=== PATIENT | female | born 1980 ===

== ENCOUNTER 2017-04-06 17:27 | Inpatient (IN) | payer MEDICAID, OTHER ==
[2017-04-06] MEDS ORDERED: Albuterol-Ipratrop 3 mg / 0.5 (3 ml) UD INH STA (17:55)
[2017-04-06] MEDS ORDERED: Sodium Chloride 0.9% 1,000 ML IV STA (17:55)
[2017-04-06] MEDS ORDERED: Albuterol-Ipratrop 3 mg / 0.5 (3 ml) UD ONE (18:01)
[2017-04-06 18:25] LABS: BASO # 0.1 K/uL (0.0-0.2); BASO % 0.6 % (0.0-2.0); EOS # 1.2 K/uL (0.0-0.7); EOS % 13.4 % (0.0-4.0); LYMPH # 2.3 K/uL (1.0-4.3); LYMPH % 25.5 % (20.0-40.0); MEAN CELL VOLUME 73.4 fl (81.0-99.0); MEAN CORPUSCULAR HEMOGLOBIN 23.4 pg (27.0-31.0); MEAN CORPUSCULAR HGB CONC 31.9 g/dL (33.0-37.0); MEAN PLATELET VOLUME 8.8 fl (7.2-11.7); MONO # 0.5 K/uL (0.0-0.8); MONO % 5.7 % (0.0-10.0); NEUT # 4.9 K/uL (1.8-7.0); NEUT % 54.8 % (50.0-75.0); RED CELL DISTRIBUTION WIDTH 17.9 % (11.5-14.5)
[2017-04-06 18:32] LABS: ALB/GLOB RATIO 1.4 (1.0-2.1); ALKALINE PHOSPHATASE 64 U/L (38-126); ALT/SGPT 33 U/L (9-52); AST/SGOT 33 U/L (14-36); BILIRUBIN,TOTAL 0.2 mg/dl (0.2-1.3); BLOOD UREA NITROGEN 14 mg/dl (7-17); CARBON DIOXIDE 24 mmol/L (22-30); CHLORIDE 105 mmol/L (98-107); GFR AFRICAN-AMERICAN > 60; GLUCOSE,RANDOM 100 mg/dL (65-105); POTASSIUM 3.8 MMOL/L (3.6-5.0); SODIUM 140 mmol/l (132-148)
--- NOTE | 2017-04-06 18:39 | ED PDOC ---
HPI: CCC, URI, Sore Throat Chief Complaint (Provider): [place] x 1 week History Per: Patient History/Exam Limitations: no limitations Have you had recent travel within the past 21 days to any of the following countries: [place], [place], [place] or [place]?: No Onset/Duration Of Symptoms: Days Current Symptoms Are (Timing): Still Present Sick Contacts (Context): None Associated Symptoms: Cough, Sputum (With blood x 1 day), Myalgias. denies: Fever, Chills, Sore Throat, Neck Pain, Sinus Drainage, Nasal Congestion, Nausea , Vomiting, Diarrhea Ear Symptoms: Bilateral: None <Steffany Drew - Last Filed: 04/06/17 20:06> <Amira Mcintyre - Last Filed: 04/06/17 20:15> Time Seen by Provider: 04/06/17 17:36 Chief Complaint (Nursing): Cough, Cold, Congestion Additional Complaint(s): Pt denies history of asthma. States the last time she was coughing and wheezing was 14 years ago when she was diagnosed with TB. Pt states she completed treatment course. (Steffany Drew) Supervising Attending Note <Steffany Drew - Last Filed: 04/06/17 20:06> - Supervising Attending Note The Documented history was done by the: Physician Adoption Social Worker, Attending Physician The documented physical exam was done by the: Physician Adoption Social Worker, Attending Physician - Attestation: I have personally seen and examined this patient.: Yes I have fully participated in the care of the patient.: Yes I have reviewed all pertinent clinical information, including history, physical exam and plan: Yes <Amira Mcintyre - Last Filed: 04/06/17 20:15> - Notes: Notes:: DW pt findings of CXR. She reports that when she had TB in the past, she was told that she no longer had a right lung. Pt's exam demonstrates continued rhonchi/wheeze bilaterally. Labs so far unremarkable. At this point, pt needs hospitalization for continued treatment/evaluation of possible TB. She has pneumonia symptoms, reports they are similar to when she was first diagnosed with TB, and she is poor follow up due to lack of access. JENNIFER Keith Hospitalist (Amira Mcintyre) Past Medical History - Medical History Other PMH: TB - Surgical History Surgical History: - Family History Family History: States: No Known Family Hx <Steffany Drew - Last Filed: 04/06/17 20:06> <Amira Mcintyre - Last Filed: 04/06/17 20:15> Vital Signs: Last Vital Signs Temp 98.0 F 04/06/17 17:32 Pulse 100 H 04/06/17 17:32 Resp 16 04/06/17 17:32 BP 124/88 04/06/17 17:32 Pulse Ox 99 04/06/17 20:07 - Home Medications Home Medications: Ambulatory Orders Medication Instructions Recorded Guaifen/Dextromethorphan/PE 10 ml PO Q4H PRN 04/06/17 [Robitussin Cough-Cold Cf Liq] - Allergies Allergies/Adverse Reactions: Allergies Allergy/AdvReac Type Severity Reaction Status Date / Time No Known Allergies Allergy Verified 04/06/17 17:32 Curb-65 Severity Score - CURB-65 Severity Score Confusion: No Bun >19mg/dl (>7mmol/L): No Respiratory Rate greater than/equal to 30: No Systolic BP <90 or Diastolic BP less than/equal 60mmHg: No Age >64: No Curb-65 Score: 0 Percentage 30-day mortality: 0.6% <Steffany Drew - Last Filed: 04/06/17 20:06> Review of Systems ROS Statement: Except As Marked, All Systems Reviewed And Found Negative Constitutional: Positive for: Malaise Respiratory: Positive for: Cough, Hemoptysis, Wheezing. Negative for: Shortness of Breath, SOB with Exertion <Steffany Drew - Last Filed: 04/06/17 20:06> Physical Exam - Reviewed Nursing Documentation Reviewed: Yes Vital Signs Reviewed: Yes - Physical Exam Appears: Positive for: Well, Non-toxic, No Acute Distress Head Exam: Positive for: ATRAUMATIC, NORMAL INSPECTION, NORMOCEPHALIC Skin: Positive for: Normal Color, Warm, DRY Eye Exam: Positive for: Normal appearance ENT: Positive for: Normal ENT Inspection Neck: Positive for: Normal, Painless ROM Cardiovascular/Chest: Positive for: Regular Rate, Rhythm Respiratory: Positive for: Wheezing (Diffuse wheezing ). Negative for: Normal Breath Sounds, Decreased Breath Sounds, Accessory Muscle Use, Respiratory Distress Gastrointestinal/Abdominal: Positive for: Normal Exam, Bowel Sounds, Soft Back: Positive for: Normal Inspection Extremity: Positive for: Normal ROM Neurologic/Psych: Positive for: Alert, Oriented <Steffany Drew - Last Filed: 04/06/17 20:06> - Laboratory Results Result Diagrams: 04/06/17 18:15 04/06/17 18:15 - ECG O2 Sat by Pulse Oximetry: 99 Pulse Ox Interpretation: Normal <Steffany Drew - Last Filed: 04/06/17 20:06> - Laboratory Results Result Diagrams: 04/06/17 18:15 04/06/17 18:15 <Amira Mcintyre - Last Filed: 04/06/17 20:15> Medical Decision Making <Steffany Drew - Last Filed: 04/06/17 20:06> <Amira Mcintyre - Last Filed: 04/06/17 20:15> Medical Decision Making: Admission to hospitalist. Abnormal CXR. (Steffany Drew) Disposition - Patient ED Disposition Is Patient to be Admitted: Yes - Disposition Disposition Time: 20:06 - Pt Status Changed To: Hospital Disposition Of: Inpatient - Admit Certification Admit to Inpatient:: After my assessment, the patient will require hospitalization for at least two midnights. This is because of the severity of symptoms shown, intensity of services needed, and/or the medical risk in this patient being treated as an outpatient. - POA Present On Arrival: None <Steffany Drew - Last Filed: 04/06/17 20:06> <Amira Mcintyre - Last Filed: 04/06/17 20:15> - Clinical Impression Clinical Impression: Lower respiratory infection (e.g., bronchitis, pneumonia, pneumonitis, pulmonitis), History of tuberculosis - Disposition Condition: GOOD
[2017-04-06 18:56] LABS: VENOUS BLOOD GAS BASE EXCESS 1.5 mmol/L (0.0-2.0); VENOUS BLOOD GAS PCO2 46 mmHg (40-60); VENOUS BLOOD PH 7.38 (7.32-7.43)
[2017-04-06] MEDS ORDERED: Azithromycin 500 MG in Sodium Chloride 0.9% 250 ML IVPB STA (20:06)
[2017-04-06 20:15] LABS: RBC URINE 1 /hpf (0-3); URINE BACTERIA RARE (<OCC); URINE BILIRUBIN NEGATIVE (NEGATIVE); URINE BLOOD NEGATIVE (NEGATIVE); URINE COLOR YELLOW (YELLOW); URINE GLUCOSE (UA) NEG (Normal); URINE KETONE NEGATIVE (NEGATIVE); URINE LEUKOCYTE ESTERASE NEG Leu/uL (Negative); URINE PROTEIN NEGATIVE (NEGATIVE); URINE UROBILINOGEN 0.2-1.0 mg/dL (0.2-1.0); WBC URINE 1 /hpf (0-5)
--- NOTE | 2017-04-06 21:20 | CP.PCM.HP ---
History of Present Illness - History of Present Illness History of Present Illness: CC: Hemoptysis History via online controls engineer HPI: This is a 36 y/o female with prior history of TB who comes in with 1 week of upper respiratory symptoms which have not improved. She came into the ER today because she had blood streaked sputum. Denies f/c/n/v/d. Denies nightsweats or weight loss. Denies FUENTES, joint or muscle pain. Denies weightloss. Denies any travel or other unusual exposures. States this is different from when she had TB several years ago. ROS: 14 systems reviewed, negative other than HPI MHx: Prior history of TB with some ?scarring of the lungs SHx: in the past Allergies: None Medications: None Family Hx: None Social Hx: Lives with family, denies EtOH, denies tobacco Present on Admission - Present on Admission Any Indicators Present on Admission: No Past Patient History - Past Social History Smoking Status: Never Smoked - PULMONARY Hx Asthma: No Hx Tuberculosis: Yes (2002 treated [facility] [place]) - PSYCHIATRIC Hx Substance Use: No - SURGICAL HISTORY Hx Section: Yes Meds Allergies/Adverse Reactions: Allergies Allergy/AdvReac Type Severity Reaction Status Date / Time No Known Allergies Allergy Verified 04/06/17 17:32 Physical Exam - Constitutional Appears: No Acute Distress - Head Exam Head Exam: ATRAUMATIC, NORMOCEPHALIC - Eye Exam Eye Exam: EOMI, PERRL - ENT Exam ENT Exam: Mucous Membranes Moist - Respiratory Exam Respiratory Exam: Rhonchi, NORMAL BREATHING PATTERN - Cardiovascular Exam Cardiovascular Exam: REGULAR RHYTHM, +S1, +S2 - GI/Abdominal Exam GI & Abdominal Exam: Normal Bowel Sounds, Soft - Extremities Exam Extremities exam: Positive for: normal inspection - Neurological Exam Neurological exam: Alert, CN II-XII Intact, Oriented x3 - Psychiatric Exam Psychiatric exam: Normal Affect, Normal Mood - Skin Skin Exam: Dry, Warm Results - Vital Signs Recent Vital Signs: Last Vital Signs Temp 98.0 F 04/06/17 17:32 Pulse 100 H 04/06/17 17:32 Resp 16 04/06/17 17:32 BP 124/88 04/06/17 17:32 Pulse Ox 99 04/06/17 20:07 - Labs Result Diagrams: 04/06/17 18:15 04/06/17 18:15 - Imaging and Cardiology Chest x-ray Status: Image reviewed by me (abnormality/opacity, scarring? in L lung field) Assessment & Plan (1) Lower respiratory infection (e.g., bronchitis, pneumonia, pneumonitis, pulmonitis) Assessment and Plan: 36 y/o female with upper/lower respiratory symptoms as well as hemoptysis with MHx of TB. -Cont Azithromycin IV for now -Duonebs -Tylenol for fever -3 sets of AFB sputum cultures -ID consult (Abel) for AM -SCDS for dvt ppx Status: Acute (2) History of tuberculosis Status: Acute (3) DVT prophylaxis Status: Acute
[2017-04-06] MEDS ORDERED: Albuterol-Ipratrop 3 mg / 0.5 (3 ml) UD INH PRN (23:31)
[2017-04-07 07:10] LABS: BASO % 0.2 % (0.0-2.0); HEMATOCRIT 32.3 % (34.0-47.0); LYMPH # 0.7 K/uL (1.0-4.3); LYMPH % 10.8 % (20.0-40.0); MEAN CELL VOLUME 73.8 fl (81.0-99.0); MEAN CORPUSCULAR HEMOGLOBIN 23.8 pg (27.0-31.0); MEAN CORPUSCULAR HGB CONC 32.3 g/dL (33.0-37.0); MONO % 0.7 % (0.0-10.0); NEUT # 5.4 K/uL (1.8-7.0); NEUT % 88.3 % (50.0-75.0); NRBC % 0.1 % (0.0-0.0); WHITE BLOOD COUNT 6.1 K/uL (4.8-10.8)
[2017-04-07 07:33] LABS: BLOOD UREA NITROGEN 10 mg/dl (7-17); CALCIUM 8.8 mg/dL (8.4-10.2); CARBON DIOXIDE 21 mmol/L (22-30); CHLORIDE 108 mmol/L (98-107); GFR AFRICAN-AMERICAN > 60; GLUCOSE,RANDOM 129 mg/dL (65-105); POTASSIUM 4.1 MMOL/L (3.6-5.0); SODIUM 140 mmol/l (132-148)
--- NOTE | 2017-04-07 09:03 | CT ---
PROCEDURE: CT Chest without contrast HISTORY: right sided opacifications/bullae acute vs chronic COMPARISON: None. TECHNIQUE: Contiguous axial images were obtained through the chest without intravenous contrast enhancement. Sagittal and coronal reconstructions were performed. Radiation dose (DLP): 338 mGy-cm. This CT exam was performed using one or more of the following dose reduction techniques: Automated exposure control, adjustment of the mA and/or kV according to patient size, and/or use of iterative reconstruction technique. FINDINGS: LUNGS: Extensive bronchiectasis in the right upper lobe with moderate-sized bulla in the right lung apex as well as volume loss in the right lung. Findings appear chronic.. MEDIASTINUM: Unremarkable thoracic aorta. No aneurysm. Normal sized heart. Main pulmonary artery unremarkable. No vascular congestion. No lymphadenopathy. PLEURA: No pleural fluid. No pneumothorax. BONES: No fracture. No destructive lesion. UPPER ABDOMEN: Grossly unremarkable. OTHER FINDINGS: None. IMPRESSION: Extensive bronchiectasis in the right upper lobe with moderate-sized bulla in the right lung apex as well as volume loss in the right lung. Findings appear chronic..
[2017-04-07] MEDS: Azithromycin 500 MG in Sodium Chloride 0.9% 250 ML IVPB SCH (11:37)
--- NOTE | 2017-04-07 11:53 | CP.PCM.PN ---
Subjective - Date & Time of Evaluation Date of Evaluation: 04/07/17 Time of Evaluation: 11:30 - Subjective Subjective: No fever still with cough no hemoptysis no CP denies wt loss , no night sweats Objective - Vital Signs/Intake and Output Vital Signs (last 24 hours): Temp Pulse Resp BP Pulse Ox 97.4 F L 92 H 16 116/76 97 04/07/17 10:00 04/07/17 07:51 04/07/17 07:51 04/07/17 07:51 04/07/17 07:51 - Medications Medications: Current Medications Acetaminophen (Tylenol 325mg Tab) 650 mg PO Q6 PRN PRN Reason: Fever >100.4 F Albuterol/Ipratropium (Duoneb 3 Mg/0.5 Mg (3 Ml) Ud) 3 ml INH RQ6 PRN PRN Reason: Shortness of Breath Azithromycin 500 mg/ Sodium (Chloride) 250 mls @ 250 mls/hr IVPB DAILY [facility] Last Admin: 04/07/17 11:37 Dose: 250 mls/hr Ceftriaxone Sodium 1 gm/ (Sodium Chloride) 100 mls @ 100 mls/hr IVPB DAILY [facility] Last Admin: 04/07/17 11:36 Dose: 100 mls/hr - Labs Labs: 04/07/17 06:05 04/07/17 06:05 - Constitutional Appears: No Acute Distress - Head Exam Head Exam: ATRAUMATIC, NORMAL INSPECTION, NORMOCEPHALIC - Eye Exam Eye Exam: EOMI, Normal appearance, PERRL Pupil Exam: NORMAL ACCOMODATION - ENT Exam ENT Exam: Mucous Membranes Moist, Normal External Ear Exam - Neck Exam Neck Exam: Full ROM. absent: Meningismus - Respiratory Exam Respiratory Exam: Rales, Wheezes (sl wheezing, right ), NORMAL BREATHING PATTERN. absent: Respiratory Distress - Cardiovascular Exam Cardiovascular Exam: REGULAR RHYTHM, +S1, +S2 - GI/Abdominal Exam GI & Abdominal Exam: Soft, Normal Bowel Sounds. absent: Tenderness - Extremities Exam Extremities Exam: Full ROM, Normal Capillary Refill, Normal Inspection. absent : Calf Tenderness - Back Exam Back Exam: Full ROM, NORMAL INSPECTION. absent: CVA tenderness (L), CVA tenderness (R), paraspinal tenderness, vertebral tenderness - Neurological Exam Neurological Exam: Alert, Awake, CN II-XII Intact, Normal Gait, Oriented x3 Neuro motor strength exam: Left Upper Extremity: 5, Right Upper Extremity: 5, Left Lower Extremity: 5, Right Lower Extremity: 5 - Psychiatric Exam Psychiatric exam: Normal Affect, Normal Mood - Skin Skin Exam: Dry, Normal Color, Warm Assessment and Plan - Assessment and Plan (Free Text) Assessment: 36 y/o with hx of PTB ( 2002) - dx in [facility] [place], followed by outpt tx with the Chest Clinic in , came in because of 1 wk hx of productive cough , noted some blood tinge sputum . CT of chest : Extensive bronchiectasis in the right upper lobe with moderate- sized bulla in the right lung apex as well as volume loss in the right lung. Findings appear chronic.. (1) Lower respiratory infection (e.g., bronchitis, pneumonia, pneumonitis, pulmonitis) with Bronchiectasis r/o Reactivation of PTB - started on IV Ceftriaxone and Azithro - Sputum c/s -Sputum AFB x 3 - ID consult - discussed case with Dr Roman -Resp Isolation Status: Acute (2) History of tuberculosis Status: Acute (3) DVT prophylaxis Status: Acute SCD encourage ambulation
--- NOTE | 2017-04-07 12:07 | RAD ---
HISTORY: cough COMPARISON: April 06, 2017. CT thorax TECHNIQUE: Chest PA and lateral FINDINGS: LUNGS: Volume loss, presumed chronic changes right lung, right upper lobe. This includes scarring, bronchiectatic changes and bolus findings in the apex. PLEURA: No significant pleural effusion identified. No pneumothorax apparent. CARDIOVASCULAR: Normal. OSSEOUS STRUCTURES: No significant abnormalities. VISUALIZED UPPER ABDOMEN: Normal. OTHER FINDINGS: None. IMPRESSION: Presumed chronic changes right chinmay thorax including bronchiectatic change, volume loss, scarring. No acute findings left lung.
[2017-04-08] MEDS ORDERED: cefTRIAXone (Rocephin) 1 gm Inj ONE (09:00)
[2017-04-09] MEDS: Azithromycin 500 MG in Sodium Chloride 0.9% 250 ML IVPB SCH (10:18)
--- NOTE | 2017-04-09 12:06 | CP.PCM.PN ---
Subjective - Date & Time of Evaluation Date of Evaluation: 04/09/17 Time of Evaluation: 12:05 - Subjective Subjective: Hospitalist Progress Note (Patient was seen and examined at 12:05 PM 658-1 ) ROS Dry nonproductive cough NO hemoptysis NO SOB NO chest pain, NO palpitations, , NO dysphagia/odynophagia, NO abdominal pain, NO n/v/d/c, NO black bloody stools, NO burning/pain with urination, NO headache , NO new changes in vision/eye pain, NO new changes in hearing/ear pain, NO lightheadedness/dizziness, NO paresthesias Exam: HEENT: NCA, EOMI, PERRLA, NO pharyngeal erythema/exudate, NO thyromegaly, NO lymphadenopathy, Cardio: NS1 and NS2, NO M/R/G Respiratory:CTA B/L NO R/R/W GI: BSx4, Soft, NT, NO HSM, NO guarding/rebound tenderness, ND Ext: NO Edema, Capillary Refill is 2 seconds, Pulses are strong and equal, NO cyanosis Neuro: CN II throug XII are grossly intact Assessment/Plan 1). RUL Pneumonia?/Bronchiectasis As per CT Chest and Chest X Ray I spoke with C in Microbiology for results of 3rd Sputum for AFB (the first 2 were negative) and she will call me/Nurse April back with the results hopefully today I spoke with Ms Daigle [phone] (office [phone]) at the [facility] ([address] [place] [address]) and she is aware of this patient, who was treated there initially for TB. Ms. Daigle received the CT Chest report that was faxed over by [employer] [facility] and the director of the chest clinic has reviewed it as per Ms Daigle and from their standpoint patient can be discharged and follow up with them this Wednesday04/12/17 at 8:30 AM. I will await the results of the 3rd Sputum AFB and if Negative then will discharge patient Full Note/Discharge Summary to follow pending 3rd AFB Sputum results. Sven Morfin, [place].Mando. [phone] Objective - Vital Signs/Intake and Output Vital Signs (last 24 hours): Temp Pulse Resp BP Pulse Ox 97.9 F 84 16 92/61 L 96 04/09/17 07:51 04/09/17 07:51 04/09/17 07:51 04/09/17 07:51 04/09/17 07:51 - Medications Medications: Current Medications Acetaminophen (Tylenol 325mg Tab) 650 mg PO Q6 PRN PRN Reason: Fever >100.4 F Albuterol/Ipratropium (Duoneb 3 Mg/0.5 Mg (3 Ml) Ud) 3 ml INH RQ6 PRN PRN Reason: Shortness of Breath Azithromycin 500 mg/ Sodium (Chloride) 250 mls @ 250 mls/hr IVPB DAILY [facility] Last Admin: 04/09/17 10:18 Dose: 250 mls/hr Ceftriaxone Sodium 1 gm/ (Sodium Chloride) 100 mls @ 100 mls/hr IVPB DAILY [facility] [place] Last Admin: 04/09/17 10:17 Dose: 100 mls/hr - Labs Labs: 04/07/17 06:05 04/07/17 06:05
--- NOTE | 2017-04-09 16:06 | CP.PCM.CON ---
History of Present Illness - History of Present Illness History of Present Illness: PT with cough and expectoration. Hx of MTB treated full course with bronchiectatic changes Past Patient History - Past Social History Smoking Status: Never Smoked - CARDIAC Hx Cardiac Disorders: No - PULMONARY Hx Respiratory Disorders: Yes (TB 2002) - MUSCULOSKELETAL/RHEUMATOLOGICAL Hx Falls: No - PSYCHIATRIC Hx Substance Use: No - SURGICAL HISTORY Hx Section: Yes - ANESTHESIA Hx Anesthesia: Yes Hx Anesthesia Reactions: No Hx Malignant Hyperthermia: No Has any member of the family had a problem w/ anesthesia?: No Meds Allergies/Adverse Reactions: Allergies Allergy/AdvReac Type Severity Reaction Status Date / Time No Known Allergies Allergy Verified 04/06/17 17:32 - Medications Medications: Current Medications Acetaminophen (Tylenol 325mg Tab) 650 mg PO Q6 PRN PRN Reason: Fever >100.4 F Albuterol/Ipratropium (Duoneb 3 Mg/0.5 Mg (3 Ml) Ud) 3 ml INH RQ6 PRN PRN Reason: Shortness of Breath Azithromycin 500 mg/ Sodium (Chloride) 250 mls @ 250 mls/hr IVPB DAILY [facility] Last Admin: 04/09/17 10:18 Dose: 250 mls/hr Ceftriaxone Sodium 1 gm/ (Sodium Chloride) 100 mls @ 100 mls/hr IVPB DAILY [facility] Last Admin: 04/09/17 10:17 Dose: 100 mls/hr Results - Vital Signs Recent Vital Signs: Last Vital Signs Temp 97.9 F 04/09/17 07:51 Pulse 84 04/09/17 07:51 Resp 16 04/09/17 07:51 BP 92/61 L 04/09/17 07:51 Pulse Ox 96 04/09/17 07:51 - Labs Result Diagrams: 04/07/17 06:05 04/07/17 06:05 Assessment & Plan - Assessment and Plan (Free Text) Assessment: Past hx of MTB, rule out active TB, 2 afb smear neg so far, if 3rd one negativ, then d/c isolation
[2017-04-10 00:32] VITALS: RESP 20
[2017-04-10] MEDS: Azithromycin 500 MG in Sodium Chloride 0.9% 250 ML IVPB SCH (08:35)
[2017-04-10 08:41] VITALS: BP 109/74; PULSE 74; TEMP 97.7; O2SAT 98
--- NOTE | 2017-04-10 12:53 | CP.PCM.DIS ---
Provider - Provider Date of Admission: 04/06/17 20:23 Attending physician: Angela Keith MD Primary care physician: None Consults: ID Dr. Roman Time Spent in preparation of Discharge (in minutes): 40 Hospital Course - Lab Results Lab Results: Micro Results 04/06/17 20:48 Blood Blood Culture - Preliminary NO GROWTH AFTER 3 DAYS 04/06/17 Unknown Other: Please Indicate Mycobacterial Culture - Preliminary 04/06/17 21:02 Other: Please Indicate Mycobacterial Culture - Preliminary Most Recent Lab Values WBC 6.1 K/uL (4.8-10.8) 04/07/17 06:05 RBC 4.38 Mil/uL (3.80-5.20) 04/07/17 06:05 Hgb 10.4 g/dL (12.0-16.0) L 04/07/17 06:05 Hct 32.3 % (34.0-47.0) L 04/07/17 06:05 MCV 73.8 fl (81.0-99.0) L 04/07/17 06:05 MCH 23.8 pg (27.0-31.0) L 04/07/17 06:05 MCHC 32.3 g/dL (33.0-37.0) L 04/07/17 06:05 RDW 18.0 % (11.5-14.5) H 04/07/17 06:05 Plt Count 252 K/uL (130-400) 04/07/17 06:05 MPV 9.0 fl (7.2-11.7) 04/07/17 06:05 Neut % (Auto) 88.3 % (50.0-75.0) H 04/07/17 06:05 Lymph % (Auto) 10.8 % (20.0-40.0) L 04/07/17 06:05 Hill % (Auto) 0.7 % (0.0-10.0) 04/07/17 06:05 Eos % (Auto) 0.0 % (0.0-4.0) 04/07/17 06:05 Baso % (Auto) 0.2 % (0.0-2.0) 04/07/17 06:05 Neut # 5.4 K/uL (1.8-7.0) 04/07/17 06:05 Lymph # 0.7 K/uL (1.0-4.3) L 04/07/17 06:05 Hill # 0.0 K/uL (0.0-0.8) 04/07/17 06:05 Eos # 0.0 K/uL (0.0-0.7) 04/07/17 06:05 Baso # 0.0 K/uL (0.0-0.2) 04/07/17 06:05 pO2 27 mm/Hg (30-55) L 04/06/17 18:50 VBG pH 7.38 (7.32-7.43) 04/06/17 18:50 VBG pCO2 46 mmHg (40-60) 04/06/17 18:50 VBG HCO3 24.8 mmol/L 04/06/17 18:50 VBG Total CO2 28.6 mmol/L (22-28) H 04/06/17 18:50 VBG O2 Sat (Calc) 54.2 % (40-65) 04/06/17 18:50 VBG Base Excess 1.5 mmol/L (0.0-2.0) 04/06/17 18:50 VBG Potassium 3.8 mmol/L (3.6-5.2) 04/06/17 18:50 Sodium 138.0 mmol/L (132-148) 04/06/17 18:50 Chloride 108.0 mmol/L (98-107) H 04/06/17 18:50 Glucose 105 mg/dL (65-105) 04/06/17 18:50 Lactate 0.7 mmol/L (0.7-2.1) 04/06/17 18:50 FiO2 21.0 % 04/06/17 18:50 Sodium 140 mmol/l (132-148) 04/07/17 06:05 Potassium 4.1 MMOL/L (3.6-5.0) 04/07/17 06:05 Chloride 108 mmol/L (98-107) H 04/07/17 06:05 Carbon Dioxide 21 mmol/L (22-30) L 04/07/17 06:05 Anion Gap 15 (10-20) 04/07/17 06:05 BUN 10 mg/dl (7-17) 04/07/17 06:05 Creatinine 0.4 mg/dL (0.7-1.2) L 04/07/17 06:05 Est GFR ( Amer) > 60 04/07/17 06:05 Est GFR (Non-Af Amer) > 60 04/07/17 06:05 Random Glucose 129 mg/dL (65-105) H 04/07/17 06:05 Calcium 8.8 mg/dL (8.4-10.2) 04/07/17 06:05 Total Bilirubin 0.2 mg/dl (0.2-1.3) 04/06/17 18:15 AST 33 U/L (14-36) 04/06/17 18:15 ALT 33 U/L (9-52) 04/06/17 18:15 Alkaline Phosphatase 64 U/L (38-126) 04/06/17 18:15 Total Protein 8.0 G/DL (6.3-8.2) 04/06/17 18:15 Albumin 4.7 g/dL (3.5-5.0) 04/06/17 18:15 Globulin 3.4 gm/dL (2.2-3.9) 04/06/17 18:15 Albumin/Globulin Ratio 1.4 (1.0-2.1) 04/06/17 18:15 Venous Blood Potassium 3.8 mmol/L (3.6-5.2) 04/06/17 18:50 Urine Color Yellow (YELLOW) 04/06/17 19:38 Urine Clarity Clear (Clear) 04/06/17 19:38 Urine pH 7.0 (5.0-8.0) 04/06/17 19:38 Ur Specific [place] 1.021 (1.003-1.030) 04/06/17 19:38 Urine Protein Negative mg/dL (NEGATIVE) 04/06/17 19:38 Urine Glucose (UA) Neg mg/dL (Normal) 04/06/17 19:38 Urine Ketones Negative mg/dL (NEGATIVE) 04/06/17 19:38 Urine Blood Negative (NEGATIVE) 04/06/17 19:38 Urine Nitrate Negative (NEGATIVE) 04/06/17 19:38 Urine Bilirubin Negative (NEGATIVE) 04/06/17 19:38 Urine Urobilinogen 0.2-1.0 mg/dL (0.2-1.0) 04/06/17 19:38 Ur Leukocyte Esterase Neg [place]/uL (Negative) 04/06/17 19:38 Urine RBC (Auto) 1 /hpf (0-3) 04/06/17 19:38 Urine Microscopic WBC 1 /hpf (0-5) 04/06/17 19:38 Ur Squamous Epith Cells 1 /hpf (0-5) 04/06/17 19:38 Urine Bacteria Rare (<OCC) 04/06/17 19:38 - Hospital Course Hospital Course: Hospitalist Discharge Note (Patient was seen and examined at 12:25 PM 658-1 04/10) 36 year old female who presented to [facility] with 1 week history of cough productive of blood tinged sputum. Her history was significant for TB in the past. Considering this history and findings on CT Chest/Chest X Ray she was placed on Respiratory Isolation. AFB x 3 were negative (3rd negative was confirmed with Norma in the microbiology lab earlier today). She was instructed to follow up with [facility] (they are aware of the patient and have a copy of the CT Chest which was faxed to them on 04/09/17 by the Proced Tech Sujey) as scheduled on 04/12/17 at 8:30 AM. She was discharged on Augmentin 875/125 mg 1 tablet by mouth through 04/14/17 to complete 7 day course. She does not have a PMD and therefore was instructed to follow up with the [facility] for coordination of her care. ROS Dry nonproductive cough NO hemoptysis NO SOB NO chest pain, NO palpitations, , NO dysphagia/odynophagia, NO abdominal pain, NO n/v/d/c, NO black bloody stools, NO burning/pain with urination, NO headache , NO new changes in vision/eye pain, NO new changes in hearing/ear pain, NO lightheadedness/dizziness, NO paresthesias Exam: HEENT: NCA, EOMI, PERRLA, NO pharyngeal erythema/exudate, NO thyromegaly, NO lymphadenopathy, Cardio: NS1 and NS2, NO M/R/G Respiratory:CTA B/L NO R/R/W GI: BSx4, Soft, NT, NO HSM, NO guarding/rebound tenderness, ND Ext: NO Edema, Capillary Refill is 2 seconds, Pulses are strong and equal, NO cyanosis Neuro: CN II throug XII are grossly intact Assessment/Plan 1). RUL Pneumonia?/Bronchiectasis As per CT Chest and Chest X Ray I spoke with Britta in Microbiology on 04/09/17 for results of 3rd Sputum for AFB ( the first 2 were negative) and she explained that the 3rd sputum was never sent to [facility] on 04/08/17 due to issues with [employer]. She sent the 3rd sample out [facility]. I spoke with Norma in the microbiology lab on 04/10/17 and confirmed that the 3rd AFB was negative. I spoke with Ms Daigle [phone] (office [phone]) at the [facility] ([address] [place] [address]) on 04/09/17 and she is aware of this patient, who was treated there initially for TB. Ms. Daigle received the CT Chest report that was faxed over by Proced Tech Marlen and the director of the chest clinic has reviewed it as per Ms Daigle and from their standpoint patient can be discharged and follow up with them this Wednesday at 8:30 AM. The following instructions were explained to patient: 1). Please follow up with the [facility] located at [address] [place] [address] on Wednesday04/12/17 at 8:30 AM. 2). Please schedule follow up with the [facility] by calling them at [phone] for an appointment as you do not have a primary care physician. 3). Please have the following prescription filled your pharmacy and start on : Augmentin 875/125 mg 1 tablet by mouth 2x/day (once with breakfast and once with dinner) starting on 04/11/17 until finished 4). Please take an over the counter (does not require a prescription) probiotic with lunch for the next 30 days. Ask the pharmacist which one he/she recommends. 5). Please bring this discharge summary with you to all of your appointments. 6). Please take care. Sven Morfin D.O. Discharge Exam - Head Exam Head Exam: ATRAUMATIC, NORMAL INSPECTION, NORMOCEPHALIC Discharge Plan - Follow Up Plan Condition: GOOD Disposition: HOME/ ROUTINE Instructions: Pneumonia (DC) Additional Instructions: Follow up with [facility] [address] [place] [id number] Appointment scheduled for Wednesday04/12/17 at 0830
== END 2017-04-10 13:50 | disposition home or self-care (01) | DRG 192 ==
LOC: H.ER 17:27 → H.ERHOLD 20:23 → H.MEDSURG1 22:58
PROVIDERS: ADMIT Internal Medicine; ATTEND Internal Medicine
PROC: 3E0F73Z Introduction of Anti-inflammatory into Respiratory Tract, Via Natural or Artificial Opening (ICD-10-PCS; principal; 2017-04-06)
DX: J47.0 Bronchiectasis with acute lower respiratory infection (principal); J18.9 Pneumonia, unspecified organism; Z86.11 Personal history of tuberculosis